=== PATIENT | male | born 1950 | race African-American/Black ===

== ENCOUNTER → 2020-10-20 08:56 | Outpatient (BNVA) | payer OTHER, SELFPAY | PROVIDERS: PCP Internal Medicine; Visit Provider Urology ==

== ENCOUNTER → 2021-05-28 09:40 | Outpatient (BNVA) | payer OTHER, SELFPAY | PROVIDERS: PCP Internal Medicine; Visit Provider Urology | DX: C61 Malignant neoplasm of prostate (principal); N39.498 Other specified urinary incontinence | CPT/HCPCS: 52000; 99212 ==

== ENCOUNTER 2021-11-05 10:31 | Outpatient (REF) | payer OTHER, SELFPAY ==
[2021-11-05 12:26] LABS: PSA,Total (Free>4and<10) < 0.05 ng/mL (0.00-4.00)
== END 2021-11-05 10:32 | disposition home or self-care (01) ==
LOC: HO.LAB 10:31
PROVIDERS: PCP Internal Medicine; Visit Provider Urology
DX: Z12.5 Encounter for screening for malignant neoplasm of prostate (principal); C61 Malignant neoplasm of prostate
CPT/HCPCS: 36415; 84153

== ENCOUNTER → 2021-11-09 14:30 | Outpatient (BNVA) | payer OTHER, SELFPAY | PROVIDERS: PCP Internal Medicine; Visit Provider Urology | DX: Z13.89 Encounter for screening for other disorder (principal) | CPT/HCPCS: 99212 ==

== ENCOUNTER → 2021-12-21 15:04 | Outpatient (BNVA) | payer OTHER, SELFPAY | PROVIDERS: PCP Internal Medicine; Visit Provider Urology | DX: N39.3 Stress incontinence (female) (male) (principal); C61 Malignant neoplasm of prostate | CPT/HCPCS: 51798; 99212 ==

== ENCOUNTER → 2022-02-15 10:50 | Outpatient (BNVA) | payer OTHER, SELFPAY | PROVIDERS: PCP Internal Medicine; Visit Provider Urology | DX: N39.3 Stress incontinence (female) (male) (principal) | CPT/HCPCS: 99212 ==

== ENCOUNTER 2022-02-28 05:39 | Day surgery (SDC) | payer OTHER, SELFPAY ==
[2022-02-21 15:10] VITALS: BMI 23.8
--- NOTE | 2022-02-25 10:23 | HO.ANESPROP2 ---
Documented by User: Erma Packer NP 02/25/22 10:24 HPI - Anesthesia Eval Consult details Narrative: 71yo M for Pubo Sling - Male PMFSH Active Problems Active Problems: All Active Problems (Updated 02/21/22 @ 15:03 by Mona Boateng RN) Prostate cancer (Acute) Male urinary stress incontinence (Acute) UTI (urinary tract infection) with pyuria (Acute) Incomplete emptying of bladder (Acute) Past Medical History Medical History Bladder outlet obstruction Depression Elevated cholesterol Emphysema of lung Incomplete emptying of bladder Peripheral neuropathy Prostate cancer UTI (urinary tract infection) with pyuria Family History Family History Father Prostate cancer Brother Prostate cancer Surgical History Surgical History H/O colonoscopy Hx of appendectomy Hx of radical prostatectomy Hx of right inguinal hernia repair Social History Social History (Updated 02/21/22 @ 15:03 by Mona Boateng RN) Household Members: Family Housing: House Do you presently have visiting nurse or other home services: No Patient Tobacco Use Status: Former Tobacco user Tobacco use type: Cigarette Use of substances other than those prescribed or required for medical reasons: No Have you been hit, kicked, punched, or otherwise hurt by someone within the past year? If so, by whom?: No Do you feel safe in your current relationship?: Yes Are you DNR?: No Advance Directives: No Advance Directives Information Provided: Yes Do you have thoughts of harming others: None Do you have a plan to hurt others: No Plan Recently lost weight without trying: No Nutrition Risks: No Nutritional Risk Meds Allergies Allergy/AdvReac Type Severity Reaction Status Date / Time No Known Allergies Allergy Verified 02/14/22 15:21 Home Medications Medication Instructions Recorded Confirmed Last Taken Type aspirin 81 mg chewable tablet 81 mg PO Q48H 02/28/22 02/28/22 Unknown History cetirizine 10 mg tablet 10 mg PO DAILY PRN Allergy Symptoms 02/28/22 02/28/22 Unknown History melatonin 3 mg tablet 3 mg PO BEDTIME PRN Allergy 02/28/22 02/28/22 Unknown History Symptoms meloxicam 15 mg tablet 15 mg PO DAILY PRN Pain 02/28/22 02/28/22 Unknown History Exam Exam Date and Time: February 25, 2022 1023 Height,Weight and Vital Signs: Height 5 ft 2 in Weight 58.967 kg Assessment and Plan Assessment Anesthesia Assessment: Chart Reviewed Documented by User: Laurent Unger MD 02/28/22 18:13 HPI - Anesthesia Eval Consult details Narrative: 71yo M for Pubo Sling - Male post nasal drip PMFSH Past Medical History Medical History Bladder outlet obstruction Depression Elevated cholesterol Emphysema of lung Incomplete emptying of bladder Peripheral neuropathy Prostate cancer UTI (urinary tract infection) with pyuria Family History Family History Father Prostate cancer Brother Prostate cancer Family history of problems with anesthesia: No Surgical History Surgical History H/O colonoscopy Hx of appendectomy Hx of radical prostatectomy Hx of right inguinal hernia repair History of Problems with Anesthesia: No Social History Social History (Updated 02/21/22 @ 15:03 by Mona Boateng RN) Household Members: Family Housing: House Do you presently have visiting nurse or other home services: No Patient Tobacco Use Status: Former Tobacco user Tobacco use type: Cigarette Use of substances other than those prescribed or required for medical reasons: No Have you been hit, kicked, punched, or otherwise hurt by someone within the past year? If so, by whom?: No Do you feel safe in your current relationship?: Yes Are you DNR?: No Advance Directives: No Advance Directives Information Provided: Yes Do you have thoughts of harming others: None Do you have a plan to hurt others: No Plan Recently lost weight without trying: No Nutrition Risks: No Nutritional Risk Meds Allergies Allergy/AdvReac Type Severity Reaction Status Date / Time No Known Allergies Allergy Verified 02/14/22 15:21 Home Medications Medication Instructions Recorded Confirmed Last Taken Type aspirin 81 mg chewable tablet 81 mg PO Q48H 02/28/22 02/28/22 Unknown History cetirizine 10 mg tablet 10 mg PO DAILY PRN Allergy Symptoms 02/28/22 02/28/22 Unknown History melatonin 3 mg tablet 3 mg PO BEDTIME PRN Allergy 02/28/22 02/28/22 Unknown History Symptoms meloxicam 15 mg tablet 15 mg PO DAILY PRN Pain 02/28/22 02/28/22 Unknown History Exam Airway Mallampati Class: III TM Dist: >3cm Neck ROM: Full Loose/Missing/Broken Teeth: Yes (Extremely poor dentition ) Heart: S1, S2 Lungs: b/l breath sounds Assessment and Plan Assessment Anesthesia Assessment: Anesthesia Plan Discussed Final Anesthetic Review Family History of Problems with Anesthesia: No History of Problems with Anesthesia: No NPO: Yes ASA Class: III Final Preanesthetic Review: Meds/Allgs Chart Reviewed, Consent Obtained/Reviewed and Anes Risks/Benef Reviewed Patient Risk: Intermediate Procedure Risk: Intermediate Anesthetic Plan Anesthetic Plan: GA Disposition: Standard PACU
[2022-02-28] VITALS (15 sets, daily range): BP systolic 122–164; BP diastolic 71–92; PULSE 53–96; RESP 14–18; TEMP 36.2–37.2; O2SAT 95–100; BMI 23.8
--- NOTE | 2022-02-28 08:32 | PC.NURSE ---
0800 deceision to reschedule surgery due to medications not being taken and high cardiac risk
--- NOTE | 2022-02-28 09:18 | MHC.SHP ---
Pre-Procedural Eval Section A Date of Service: 02/28/22 The patient is an INPATIENT: No Changes since office visit: No Cold of Flu in the past 2 weeks, No New Medical Problems, No Changes in Medication and No Patient answered all questions The History & Physical has been completed within 30 days and I have reviewed it.: Yes Section B Chief Complaint: Stress incontinence (female) (male) Details of Present Illness: mALE STRESS INCONTINANCE FOLLOWING PROSTectomy Relevant Family History (Specify if Yes): No Relevant Social History: None Present Medications: see Short Stay Collaborative assessment Medical History: No relevant PMH History of Previous Operations: Relevant previous surgery/procedure and date(s) Allergies: Allergies Allergy/AdvReac Type Severity Reaction Status Date / Time No Known Allergies Allergy Verified 02/14/22 15:21 Review of Systems Sugical H&P ROS: Negative: Constitution, Cardiovascular, Respiratory, Neurological, Psychiatric, Hem-Onc, Allergic/Immunologic, Gastrointestinal, Genitourinary, Musculoskeletal, Integumentary, Endocrine and Eyes/Ears/Nose/Throat Exam Surgical H&P Exam: Normal: HEENT, Normal: Heart, Normal: Lungs, Normal: Extremities, Normal: Abdomen, Normal: Skin and Normal: Neurological Plan Diagnosis/Plan: Unchanged (cystoscopy, male sling placement) I have reviewed the history and physical and performed a pertinent physical examination on my patient. No changes have occurred unless specified.
[2022-02-28] MEDS: ceFAZolin Sodium/Dextrose,Iso 2 GM/50 ML PIGGYBACK IV (09:45)
--- NOTE | 2022-02-28 12:00 | P.OP_ITS ---
Operative Note Operative Note Date of Service: 02/28/22 Narrative: PreOperative Diagnosis: male stress incontinence Post Operative Diagnosis: male stress incontinence Procedure: Advance male sling with cystoscopy Surgeon: Dr Mandeep Baldwin Anesthesia: general Indications for procedure: Male stress incontinence following radical prostatectomy. 2-4 pads per day. Office cystoscopy shows good tissue apposition. Procedure: After informed consent was verified the patient was brought to the operating room and placed in a supine position. Anesthesia was administered per protocol. The patient was placed in a dorsal lithotomy position. Legs aligned to patient's shoulders bent at 90 degrees with slight spread. He was prepped and draped in a sterile fashion. Safety pause time-out was performed. Antibiotics had been given including 2 g catheterization Kefazolinand gentamicin per protocol. Sixteen [place] Fleming catheter placed on the field in bladder drained. Scrotum and Fleming catheter elevated. 5 cm lobe midline perineal incision was marked. Local anesthetic was infiltrated through the skin. Incision was made and taken down through Colles fascia. A [place] retractor was used to provide adequate exposure. Dissection was performed releasing the bulbar spongiosis muscle from its overlying tissue. This was freed laterally, proximally and distally. At the distal edge the junction between the bulbar muscle and corpus spongiosum was defined. The bubble spongiosis muscle was then divided starting distal and running pro ximally. Careful dissection was performed laterally to release any connecting tissue from the corpus spongiosum. The distal aspect of the central tendon was identified by lifting the proximal bulb anteriorly to provide counter traction. The initial dissection of the central tendon was performed. A 4-0 Vicryl suture was placed on the distal aspect of the central tendon insertion for identificat ion. Urethra was mobilized incising fibrous portion of central tendon for approximately 3 to 4 cm of proximal displacement. Care was taken regarding the proximal midline vessels feeding into the corpus spongiosum. At this point the internal aspect of the obturator canal was palpable. This was defined by the symphysis pubis above in the issue of pubic ramus laterally. The insertion of the adductus longus tendon on to the pubis was palpated and marked on each side with a marking pen. The spot of insertion was 1 fingerbreadth below the insertion of the adductor longus tendon lateral to the ischiopubic ramus. Local anesthetic was infiltrated on each side. An Allis clamp was placed on the edge of the bulbous spongiosis muscle in order to assist with the traction away from the side of trocar passage. On the patient's left side the helical trocar was held a 45 degree angle to the midline with the trocar against the patient's buttock. The index finger of the left hand was placed in the perineal incision. The index finger was placed at the apex of the obturator canal. The issue of pubic ramus was palpable. The finger was placed to protect the corpus from inadvertent trocar injury. The trocar was advanced and 2 pops were felt as the trocar passed through the obturator externus and obturator internus muscle layers. After the 2nd pop the trocar was turned approximately 1/4 turn to bring the needle on to the index finger. As the trocar was brought through the fascia the handle was dropped in a vertical fashion to bring out the needle as high as possible in the apex of the obturator fossa. Once the trocar was delivered the mesh was attached with the blue dots facing out and brought back through the stab incision. A similar procedure was performed on the left side and the mesh brought out through the skin incision. The mesh was attached to the corpus spongiosum via 4 separate 4-0 Vicryl sutures. The proximal edge of the mesh was aligned with the initial central tendon marking suture prior to being secured to the corpus spongiosum. The distal edge of the mesh was likewise attached to the corpus spongiosum. The Fleming catheter was removed. The [place] retractor was removed. Flexible cystoscopy was performed. The sling was tightened until circumferential coaptation was observed. This was evaluated with the water turned both on and off. The mesh was examined through the incision and an indent configuration of the corpus spongiosum was notable. The protective type of aches sheath and outer plastic sheath were removed. The sheath was irrigated with antibiotic solution. The mesh was stabilized by holding the mesh next to the corpus spongiosum on the contralateral side. At this point the sheath was removed. This happened after the sheath was divided below the blue judson located at the end of the sling. Initially this was performed on the left side and subsequently repeated on the right side. The arms of the mesh were tunneled subcutaneously using a tonsil clamp in order to minimize chance of slippage. The overlying bulbocavernosus muscle was closed with running 3-0 Vicryl suture. Irrigation was performed. Hemostasis was adequate. A 2nd intervening layer of tissue was closed using a running 3-0 Vicryl. Skin was closed with a running 4-0 Monocryl. Incisions were cleaned and dried. Glue was placed and a final dressing placed. Prior to closure of the incision a 14 [place] F[place] catheter was placed into the bladder which remain overnight. He tolerated the procedure well was extubated in operating room and transferred in stable condition to the recovery area. Pathology: None Drains: Fleming
[2022-02-28] MEDS: oxyCODONE HCl Immed Release 5 MG TABLET PO (12:33)
[2022-02-28] MEDS: Acetaminophen 325 MG TABLET 650 MG PO (12:34)
[2022-02-28] MEDS: HYDROmorphone HCl 0.5 MG/0.5 ML SYRINGE 0.25 MG IVPUSH ×3 (12:36→23:21)
--- NOTE | 2022-02-28 17:50 | PHA.MEDREC ---
Pharmacy Consult ? Medication Reconciliation Pharmacy has completed the medication reconciliation. Patient had a written list. Only takes Aspirin regular every other day. Mia Frazier, PharmD
[2022-02-28] MEDS: Lactated Ringers 1,000 ML 100 ML IVCONT (18:02)
[2022-02-28] MEDS: 0.9 % Sodium Chloride Flush 3 ML SYRINGE IVFLUSH (18:02)
--- NOTE | 2022-02-28 18:22 | PC.NURSE ---
Pt alert orineted x3. denies pain but c/O discomfort. pt admitted form Or S/P male sling placement to rm 357.Dressing to the scrotal area intact with some [id number] strijke through. Pt has a arnett Cath that was inserted in thge OR for bladder obstruction.#20 to the right wrist area.
[2022-03-01] MEDS: Lactated Ringers 1,000 ML 100 ML IVCONT (03:11)
[2022-03-01 03:19] VITALS: BP 120/68; PULSE 90; RESP 14; TEMP 37.7; O2SAT 95
[2022-03-01] MEDS: HYDROmorphone HCl 0.5 MG/0.5 ML SYRINGE 0.25 MG IVPUSH (05:11)
[2022-03-01 07:49] VITALS: BP 117/73; PULSE 82; RESP 17; TEMP 37.3; O2SAT 93
[2022-03-01] MEDS: 0.9 % Sodium Chloride Flush 3 ML SYRINGE IVFLUSH (08:43)
--- NOTE | 2022-03-01 08:56 | HO.POSTANES ---
Post Anesthesia Evaluation Post Anesthesia Evaluation Vital Signs: Vital Signs Temp Pulse Resp BP Pulse Ox O2 Del Method 03/01/22 07:49 99.2 F 82 17 117/73 93 Room Air 03/01/22 03:19 99.8 F 90 14 120/68 95 Room Air 02/28/22 23:20 98.9 F 85 16 126/82 95 Room Air Anesthesia: Monitored Pain Control: Satisfactory Nausea/Vomiting: None Hydration: Adequate Anesthesia-Related Issues: No Anes. Related Issues
[2022-03-01] MEDS: Acetaminophen 325 MG TABLET 650 MG PO (09:22)
[2022-03-01] MEDS: oxyCODONE HCl Immed Release 5 MG TABLET PO (09:22)
--- NOTE | 2022-03-01 09:48 | PM.DS ---
DS: Providers Provider Date of Service: 03/01/22 Primary care physician: Lindsay West MD DS: Diagnosis Discharge Diagnosis (1) Male urinary stress incontinence: Status: Acute DS: Summary Hospital Course Hospital Course: Underwent male sling placement yesterday Fleming catheter overnight Fleming catheter removed today Follow-up in 4 weeks Status at Discharge Functional status at discharge: independent ambulation Overall status at discharge: patient is back to baseline Time Spent with Patient Time attestation: Total time spent providing and/or coordinating discharge services: Discharge coordination time: Less than 30 minutes Specific discharge activities: Cannot lift heavier than 10 lb for the next 4-6 weeks Quality: Safe Use of Opioids Does Pt have an Active Cancer Diagnosis on the Problem List?: No Quality: Stroke Does the patient have a stroke diagnosis?: No Physical Exam Vital Signs: Vital Signs: Last Vital Signs Temp 99.2 F 03/01/22 07:49 Pulse 82 03/01/22 07:49 Resp 17 03/01/22 07:49 BP 117/73 03/01/22 07:49 Pulse Ox 93 03/01/22 07:49 O2 Del Method 03/01/22 07:49 O2 Flow Rate 2 02/28/22 13:40 BMI result Body Mass Index 23.8 Const: General: cooperative, healthy appearing, comfortable and no acute distress Orientation/consciousness: patient oriented x3 HEENT: Face and sinus: Yes normal facial exam Mouth: moist mucous membranes Neck: Neck: Yes normal visual inspection, Yes full ROM and Yes trachea midline Chest: Chest palpation & inspection: normal inspection of the chest Resp: Effort & Inspection: normal respiratory effort, able to speak in complete sentences and no respiratory distress GI: Inspection: Yes normal to inspection Back/Spine/Pelvis: Cervical Spine: normal cervical lordosis Thoracic/Lumbar Spine: thoracic and lumbar spine normal to inspection Skin: General skin exam: no rashes or lesions noted Neuro: General: patient oriented x3, tone normal and moves all extremities Extrem: General: Yes normal to inspection and Yes capillary refill normal Discharge Plan Discharge Patient Disposition: Home, Self-Care Referrals: Mandeep Baldwin MD [Physician] - 4 Weeks Lindsay West MD [Primary Care Provider] - None Discharge Medications: New sulfamethoxazole-trimethoprim [Bactrim] 400-80 mg tablet 1 tab PO DAILY Qty: 10 0RF tramadol 50 mg tablet 50 mg PO Q6H PRN (Reason: pain (scale score 1-3)) Qty: 8 0RF Continued cetirizine 10 mg Tablet 10 mg PO DAILY PRN (Reason: Allergy Symptoms) meloxicam 15 mg Tablet 15 mg PO DAILY PRN (Reason: Pain) melatonin 3 mg Tablet 3 mg PO BEDTIME PRN (Reason: Allergy Symptoms) aspirin 81 mg Tablet,Chewable 81 mg PO Q48H Discharge Orders: Discharge Order (Routine); Ordered 03/01/22 Ordered By: Mandeep Baldwin
--- NOTE | 2022-03-01 15:39 | MHC.CM.PN ---
EMR REVIEWED, CM MET W/PT WHO IS A&O, REPORTS HE LIVES W/DTR AND GDTR, PT IS INDEPENDENT W/ALL CARE, REPORTS HE HAS A CANE HE DOES NOT USE HOWEVER WILL IF HE NEEDS TO, PT DENIES HOME SERVICES OR NEED FOR THEM. PT VERIFIES [facility] X3 AND PCP ART ESPINOZA, PT ALSO REPORTS HIS DTR LEYLA PADILLA [phone], PT NOT SURE IF HE HAS A PAPER COPY AND REPORTED HE WOULD LIKE TO COMPLETE A NEW HCP PRIOR TO D/C HOWEVER PT DISCHARGED HOME PRIOR TO CM BEING ABLE TO COMPLETE W/PT. D/C PLAN: HOME SELF-CARE TODAY W/DTR LEYLA FOR TRANSPORT.
== END 2022-03-01 11:25 | disposition home or self-care (01) ==
LOC: HO.SSS 05:39 → HO.SSSA 14:28 → HO.S3 14:38
PROVIDERS: PCP Internal Medicine; Visit Provider Urology
PROC: (CPT 53440; principal; 2022-02-28 09:00)
DX: N39.3 Stress incontinence (female) (male) (principal); C61 Malignant neoplasm of prostate; Z90.79 Acquired absence of other genital organ(s); Z87.891 Personal history of nicotine dependence; Z79.82 Long term (current) use of aspirin; Z79.899 Other long term (current) drug therapy
CPT/HCPCS: 53440; C1771; J0690; J1100; J1170; J1200; J1580; J2405; J2795; J3010; J3370

== ENCOUNTER → 2022-03-08 10:47 | Outpatient (BNVA) | payer OTHER, SELFPAY | PROVIDERS: PCP Internal Medicine; Visit Provider Urology | DX: N31.9 Neuromuscular dysfunction of bladder, unspecified (principal); N39.3 Stress incontinence (female) (male); C61 Malignant neoplasm of prostate | CPT/HCPCS: 51798 ==

== ENCOUNTER → 2022-06-07 13:44 | Outpatient (BNVA) | payer OTHER, SELFPAY | PROVIDERS: PCP Internal Medicine; Visit Provider Urology | DX: C61 Malignant neoplasm of prostate (principal); N39.3 Stress incontinence (female) (male); R33.9 Retention of urine, unspecified | CPT/HCPCS: 51798; 99212 ==

== ENCOUNTER 2022-12-09 09:26 | Outpatient (REF) | payer OTHER, SELFPAY ==
[2022-12-09 11:47] LABS: Prostate Specific Antigen < 0.10 ng/mL (<0.05-4.0)
== END 2022-12-09 09:27 | disposition home or self-care (01) ==
LOC: HO.LAB 09:26
PROVIDERS: PCP Internal Medicine; Visit Provider Urology
DX: C61 Malignant neoplasm of prostate (principal); Z12.5 Encounter for screening for malignant neoplasm of prostate
CPT/HCPCS: 36415; 84153

== ENCOUNTER → 2022-12-16 11:03 | Outpatient (BNVA) | payer OTHER, SELFPAY | PROVIDERS: PCP Internal Medicine; Visit Provider Urology | DX: N39.3 Stress incontinence (female) (male) (principal); C61 Malignant neoplasm of prostate | CPT/HCPCS: 99212 ==

== ENCOUNTER 2024-01-02 08:43 | Outpatient (REF) | payer OTHER, SELFPAY ==
[2024-01-02 09:58] LABS: Prostate Specific Antigen < 0.10 ng/mL (<0.05-4.0)
== END 2024-01-02 08:44 | disposition home or self-care (01) ==
LOC: HO.LAB 08:43
PROVIDERS: PCP Internal Medicine; Visit Provider Urology
DX: C61 Malignant neoplasm of prostate (principal); Z12.5 Encounter for screening for malignant neoplasm of prostate
CPT/HCPCS: 36415; 84153

== ENCOUNTER 2024-01-10 11:14 | Outpatient (AMB) | payer OTHER, SELFPAY ==
--- NOTE | 2024-01-10 11:30 | MHC.OFFVIS ---
Intake Visit Reasons: 1Y PSA/PVR/UA Check(set) Intake Note: Patient presents to the office today for a 1 year PSA/PVR/UA check. Urology Med: None Antibiotic Allergy: None Blood Thinner: Aspirin PVR: 0ml Allergies No Known Allergies Allergy (Verified 01/10/24 11:31) HPI Comments Details: Guero is a very pleasant male. He is a patient of Dr West. He is seen in the office today for the following urologic conditions. - prostate cancer - postprocedure stress incontinence PSA - 12/06 <0.1, 12/07 <0.1 Minimal incontinence Using no pads Very happy with continued good outcome from sling procedure Twelve month follow-up Male stress incontinence Persistent since prostate procedure Using 1 to 4 pads per day Cystoscopy with distal sphincter partial closure on command 03/07 advanced male sling Prostate cancer: Had prior prostatectomy for prostate cancer - prostatectomy 2015 - 11/05 <0.1 PFSH Medical History Elevated cholesterol Depression Emphysema of lung Prostate cancer Peripheral neuropathy Incomplete emptying of bladder Bladder outlet obstruction UTI (urinary tract infection) with pyuria Surgical History Hx of appendectomy Hx of right inguinal hernia repair H/O colonoscopy Hx of radical prostatectomy Family History Father Prostate cancer Brother Prostate cancer Social History Household Members: Family Housing: House Do you presently have visiting nurse or other home services: No Patient Tobacco Use Status: Former Tobacco user Tobacco use type: Cigarette service: Yes Current occupational status: retired Review of Systems Const Denies chills and Denies fever(s) Card Reports no additional complaints and Denies syncope Resp Denies cough GI Denies abdominal pain and Denies heartburn Reports as per HPI and Denies change in libido Neuro Denies syncope Psych Denies change in libido Endo Denies change in libido Physical Exam Const General: cooperative, healthy appearing, comfortable and no acute distress Orientation/consciousness: patient oriented x3 HEENT Face and sinus: Yes normal facial exam Mouth: moist mucous membranes Neck Neck: Yes normal visual inspection, Yes full ROM and Yes trachea midline Chest Chest palpation & inspection: normal inspection of the chest Resp Effort & Inspection: normal respiratory effort, able to speak in complete sentences and no respiratory distress GI Inspection: Yes normal to inspection Back/Spine/Pelvis Cervical Spine: normal cervical lordosis Thoracic/Lumbar Spine: thoracic and lumbar spine normal to inspection Skin General skin exam: no rashes or lesions noted Neuro General: patient oriented x3, gait normal, tone normal and moves all extremities Extrem General: Yes normal to inspection and Yes capillary refill normal Office Procedures Post Void Residual Post Residual Void Post Void Residual (PVR): 0 [id number] Void Residual by ultrasound Results AMB Urinalysis, Automated UA Leukoctes 0 Wu/uL Last Edit by Kim Mims CMA on 01/10/24 11:39 UA Nitrite Negative Last Edit by Kim Mims CMA on 01/10/24 11:39 UA Urobilinogen 0.2 mg/dL Last Edit by Kim Mims CMA on 01/10/24 11:39 UA Protein 15 mg/dL Last Edit by Kim Mims CMA on 01/10/24 11:39 UA pH 6.0 Last Edit by Kim Mims CMA on 01/10/24 11:39 UA Blood 0 Chito/uL Last Edit by Kim iMms CMA on 01/10/24 11:39 UA Specific Warren 1.015 Last Edit by Kim Mims CMA on 01/10/24 11:39 UA Ketone Negative Last Edit by Kim Mims CMA on 01/10/24 11:39 UA Bilirubin 0 mg/dL Last Edit by Kim Mims CMA on 01/10/24 11:39 UA Glucose 0 mg/dL Last Edit by Kim Mims CMA on 01/10/24 11:39 Results Reviewed Results Reviewed: Laboratory Last Values Urine pH (Auto) 6.0 01/10/24 11:34 Specific Warren (Auto) 1.015 01/10/24 11:34 Urine Protein (Auto) 15 mg/dL 01/10/24 11:34 Glucose (UA)(Auto) 0 mg/dL 01/10/24 11:34 Urine Ketones (Auto) Negative 01/10/24 11:34 Urine Blood (Auto) 0 Chito/uL 01/10/24 11:34 Urine Nitrite (Auto) Negative 01/10/24 11:34 Urine Bilirubin (Auto) 0 mg/dL 01/10/24 11:34 Urine Urobilinogen (Auto) 0.2 mg/dL 01/10/24 11:34 Leukocyte Esterase (Auto) 0 Wu/uL 01/10/24 11:34 Assessment & Plan Assessment & Plan (1) Prostate cancer: Code(s): C61 - Malignant neoplasm of prostate Category: Medical (2) Male urinary stress incontinence: Comment: 03/07 advanced male sling Code(s): N39.3 - Stress incontinence (female) (male) Category: Medical Plan 1 year follow-up Orders: Orders AMB Post Void Residual by ultrasound Today R33.9 - Retention of urine, unspecified Prostate Specific Antigen 364 Days C61 - Malignant neoplasm of prostate AMB Urinalysis Automated Today Z13.9 - Encounter for screening, unspecified Patient Instructions: Imaging studies, laboratory and physical exam results were discussed and reviewed in detail. No major barriers to patient understanding were identified. An opportunity to ask questions regarding the treatment plan was provided. All questions were answered. The patient expressed understanding and agreement with the above treatment plan. The patient is aware they should contact our office by phone for worsening of their current condition or the appearance of new urologic symptoms. Compliance is encouraged with any medications and followup testing that is ordered. It is a privilege to participate in the urologic care of your patient. If you have any questions or concerns regarding treatment for the above conditions, or other urologic issues, please do not hesitate to contact me. The office telephone contact is [phone]. This note is constructed using voice recognition software. While every effort has been made to ensure accuracy sewing machines salesperson errors may have been included. Yours sincerely, Dr Mandeep Baldwin MD, [facility] - Urology Providers of Expert, Compassionate Care for the Genitourinary System Coding Level of Care Code Est Pt Level 4 (12729) Diagnoses Prostate cancer C61 Male urinary stress incontinence N39.3 CPT Codes Post Residual Void - PVR CPT Code: 80888-Oxpt Void Residual by ultrasound ([id number])
== END 2024-01-10 11:52 | disposition home or self-care (01) ==
PROVIDERS: PCP Internal Medicine; Visit Provider Urology
DX: C61 Malignant neoplasm of prostate (principal); N39.3 Stress incontinence (female) (male); Z13.9 Encounter for screening, unspecified
CPT/HCPCS: 99214

== ENCOUNTER → 2024-01-10 11:14 | Outpatient (BNVA) | payer OTHER, SELFPAY | PROVIDERS: PCP Internal Medicine; Visit Provider Urology | DX: C61 Malignant neoplasm of prostate (principal); R33.9 Retention of urine, unspecified; N39.3 Stress incontinence (female) (male) | CPT/HCPCS: 51798; 81003; 99212 ==

== ENCOUNTER 2025-01-21 08:51 | Outpatient (REF) | payer OTHER, SELFPAY ==
--- OUTSIDE RECORDS SUMMARY | 2024-05-09 09:30 | XMS_ITS ---
Author Name [facility] Organization [facility] [place] Address [address] [place] [id number] Care Team Providers Care Web Feeder Name Role Phone REBECA HELM Primary Care Provider Maribell lane Insurance Providers: All historical and current Section Date Range: From patient's date of to the date document was created. This section includes the names of all active insurance providers for the patient. Insurance Provider Type of Coverage Plan Name Start of Policy Coverage End of Policy Coverage Group Number Member ID Insurance Provider's Telephone Number Policy Altamirano's Name Patient's Relationship to Policy Altamirano MEDICAID [facility] Sep 11, 2012 MEDICAI D [id number] ELIGIO PADILLA PATIENT MEDICARE (WNR) MEDICARE (M) PART A Dec 15, 2006 PART A [id number] ELIGIO PADILLA PATIENT MEDICARE (WNR) MEDICARE (M) PART B Dec 15, 2006 PART B [id number] ELIGIO PADILLA PATIENT MEDICARE (WNR) MEDICARE (M) PART A Dec 15, 2006 PART A [id number] ELIGIO PADILLA PATIENT MEDICARE (WNR) MEDICARE (M) PART B Dec 15, 2006 PART B [id number] ELIGIO PADILLA PATIENT TITLE 19 MEDICAID TITLE 19 Jul 17, 2009 [id number] ELIGIO PADILLA PATIENT Selected Encounter This section includes the information on record at [place] for the Encounter. Date/Time Encounter Type Encounter Description Reason Provider Source May 09, 2024 01:30 PM INTRM OPH EXAM EST PATIENT OPTOMETRY ICD-10-CM H40.053 Ocular hypertension, bilateral LORENZO KINCAID IHE Encounter Template Text not used by VA Assessments - Encounter Diagnoses This section includes the primary and secondary diagnoses documented for the Encounter. Date/Time Primary/Secondary Diagnosis Diagnosis Name Provider Source May 10, 2024 12:02 PM PRIMARY Ocular hypertension, bilateral SANJIV,LORENZO B [facility] May 10, 2024 12:02 PM SECONDARY Age-related nuclear cataract, bilateral SANJIV,LORENZO B [facility] Advance Directives: All historical and current Section Date Range: From patient's date of to the date document was created. This section includes ALL of a patient's completed or amended VA Advance and Rescinded Directives. The entries below indicate that a directive exists for the patient, but an actual copy is not included with this document. The data comes from all [place] facilities. Date Advance Directives Provider Source Jun 02, 2009 ADVANCE DIRECTIVE MARBIN RENTERIA Encounter Notes: All associated encounter notes This section contains the clinical notes associated to the Encounter. Date/Time Encounter Note(s) Provider Source May 09, 2024 01:02 PM OPTOMETRY NOTE: LOCAL TITLE: OPTOMETRY NOTE STANDARD TITLE: OPTOMETRY NOTE DATE OF NOTE: MAY 09, 2024@13:02 ENTRY DATE: MAY 09, 2024@13:02:22 AUTHOR: LORENZO KINCAID EXP COSIGNER: URGENCY: STATUS: COMPLETED 73 DECLINED TO ANSWER MALE DECLINED TO ANSWER Last eye exam: 09/06/23 Reason for Visit/CC: patient here for a follow up visit. No changes in vision OHx: borderline ocular hypertension OU cataracts OU refractive error OU (-) Pain: (-) KEATING: (-) Diplopia: (-) Flashes: (-) Floaters: (-) Amaurosis Fugax/Tia's: (-) Eye Injury: (-) Eye Surgery: (-) TBI (-) FOHx: MHx: Code Description R69. Folic acid deficiency ([facility] [id number]) E56.9 Vitamin D deficiency ([facility] [id number]) R69. Co-Management (ICD-10-CM R69.) D07.5 Prostate cancer ([facility] [id number]) Z90.89 History of radical prostatectomy ([facility] [id number]) J43.9 Emphysema of lung ([facility] [id number]) F33.9 Depression ([facility] [id number]) 790.93 Raised prostate specific antigen ([facility] [id number]) 799.9 Appendectomy (ICD-9-CM 799.9) 553.9 Hernia (ICD-9-CM 553.9) 733.90 Osteopenia (ICD-9-CM 733.90) 799.9 Chest Findings (ICD-9-CM 799.9) 799.9 EKG (ICD-9-CM 799.9) V76.51 Screening for Malignant Neoplasms of colon (ICD-9-CM V76.51) E78.5 Hyperlipidemia ([facility] [id number]) 564.00 CONSTIPATION, unspecified (ICD-9-CM 564.00) 356.2 Peripheral sensory neuropathy (ICD-9-CM 356.2) 303.93 OTHER ALC DEP REMISS (ICD-9-CM 303.93) Other: SYSTEMIC MEDICATIONS/OCULAR MEDICATIONS: Active and Recently Outpatient Medications (excluding Supplies): Active Outpatient Medications Status 1) CETIRIZINE HCL 10MG TAB TAKE ONE TABLET BY MOUTH ONCE ACTIVE DAILY NEEDED FOR ALLERGIES 2) DICLOFENAC NA 1% TOP GEL APPLY 4 GRAMS TOPICALLY AT ACTIVE BEDTIME NEEDED FOR JOINT PAIN FOR OSTEOARTHRITIS - USE DOSING CARD PROVIDED IN BOX 3) MELOXICAM 15MG TAB TAKE ONE TABLET BY MOUTH ONCE ACTIVE DAILY FOR JOINT INFLAMMATION 4) SILDENAFIL CITRATE 100MG TAB TAKE ONE TABLET BY MOUTH ACTIVE ONCE DAILY NEEDED FOR ERECTILE DYSFUNCTION TAKE 1 HOUR PRIOR TO SEXUAL ACTIVITY START WITH 1/2 TABLET, INITIALLY Active Non-VA Medications Status 1) Non-VA ASPIRIN 81MG EC TAB 81MG BY MOUTH EVERY DAY ACTIVE 5 Total Medications ALLERGIES: Patient has answered NKA LAST BP: 118/70 (01/17/2024 10:29) PERTINENT LABS: HEMOGLOBIN A1C; BLOOD Murtaza. Date: 11/03/23 09:00 10/31/22 08:55 Test Name Result Units Range HEMOGLOBIN A1C 5.8 H 6.0 H % 4.0 - 5.6 Current Rx: OD: +1.25 -0.75 x 100 OS: +1.50 -1.50 x 105 Add: +2.50 DVA ( )sc ( x )cc OD 20/20-1 OS 20/25+2 Pupils: PERRL (-)APD EOM: Full all meridia OU, (-) pain/diplopia Confrontation Visual [place]: Full all meridia OU SLE: Lids/Lashes: clear OU Conjunctiva: white and quiet OU Corneas: clear OU Iris: flat and clear OU (-)TID OU Anterior Chamber: deep and quiet OU Angles: open OU Lens: 1-2+ NS OU (-)PXF OU TAP @ 1:17pm OD 23 mm Hg OS 20 mm Hg Pachymetry 08/2023 (OCT) OD 520 OS 524 undilated: Vitreous: Syneresis OU C/D (Size and Rim Description) OD 0.40 pink & healthy OS 0.40 pink & healthy (-)notching/hemorrhage OU Macula OD flat and clear OS flat and clear A/V: normal caliber OU Posterior Pole: clear OU Assessment/Plan: 1. borderline ocular hypertension OU - IOP today is stable OU with thinner than average pachymetry. VF today showed no glaucomatous defects OU. RNFL OCT shows significant thinning, however discs are small so RNFL may be flagged artificially low. Monitor 1 year and repeat VF/RNFL OCT 2. Nuclear sclerosis cataracts OU, not visually significant. Monitor 3. hyperopia OU, regular astigmatism OU, presbyopia OU - happy with current PALs RTC 1 year or earlier PRN Patient Education: Glaucoma: Patient was educated regarding glaucoma/glaucoma suspect as well as the natural history of this diagnosis including prognosis. Stress importance of compliance and persistency with glaucoma medication when prescribed, timely follow up as well as the role of ancillary testing. Exclusion criteria for ancillary testing include significantly reduced acuity, mental status changes affecting the patient's ability to attend to the test or other physical limitations that would prohibit the patient's ability to participate in testing. patient offered and declined printed medication list Medication Reconciliation: Outpatient: Has the patient been taking medications as documented in the EMLR? YES: The patient has been taking medications as documented in the EMLR. Essential Medication List for Review used to complete this medication reconciliation. INCLUDED IN THIS LIST: Alphabetical list of active outpatient prescriptions dispensed from this [facility] (local) and dispensed from another [place] or [facility] facility (remote) as well as inpatient orders (local, pending and active), local clinic medications, locally documented non-VA medications, and local prescriptions that have or been discontinued in the past 90 days. - All changes in medications, including all non-VA/Herbal/OTC medications were entered into [facility]S. - If there were any medications the patient should no longer take, they were discontinued. - The patient/caregiver was instructed to update this list, discard old lists, and take this list to the next appointment, whether with a VA or non-VA provider. JLV Link Data on this list may not be complete. Please check [employer]. Allergies/ADRs (Tool #5) FACILITY ALLERGY/ADR -------- No Remote Allergy/ADR Data available for this patient [place] [facility] [place] [facility] No Known Allergies Med [facility] (Tool #1) INCLUDED IN THIS LIST: Alphabetical list of active outpatient prescriptions dispensed from this [facility] (local) and dispensed from another [place] or [facility] facility (remote) as well as inpatient orders (local pending and active), local clinic medications, locally documented non-VA medications, and local prescriptions that have or been discontinued in the past 90 days. Non-VA Meds Last Documented On: Jun 27, 2018 NOTE The display of VA prescriptions dispensed from another [place] or [facility] facility (remote) is limited to active outpatient prescription entries matched to National Drug File at the originating site and may not include some items such as investigational drugs, compounds, etc. NOT INCLUDED IN THIS LIST: Medications self-entered by the patient into personal health records (i.e. [employer]) are NOT included in this list. Non-VA medications documented outside this [place], remote inpatient orders (regardless of status) and remote clinic medications are NOT included in this list. The patient and provider must always discuss medications the patient is taking, regardless of where the medication was dispensed or obtained. Non-VA ASPIRIN 81MG EC TAB TAKE ONE TABLET BY MOUTH EVERY DAY Patient wants to buy from Non-VA pharmacy. Medication prescribed by Non-VA provider. OUTPT CETIRIZINE HCL 10MG TAB (Status = Active) TAKE ONE TABLET BY MOUTH ONCE DAILY NEEDED FOR ALLERGIES Rx# [id number] Last Released: 04/19/24 Qty/Days Supply: Rx Expiration Date: 09/25/24 Refills Remainin Indication: FOR ALLERGIES OUTPT DICLOFENAC NA 1% TOP GEL (Status = Active) APPLY 4 GRAMS TOPICALLY AT BEDTIME NEEDED FOR JOINT PAIN FOR OSTEOARTHRITIS - USE DOSING CARD PROVIDED IN BOX Rx# [id number] Last Released: 11/07/23 Qty/Days Supply: Rx Expiration Date: 11/06/24 Refills Remainin Indication: FOR JOINT PAIN OUTPT MELOXICAM 15MG TAB (Status = Active) TAKE ONE TABLET BY MOUTH ONCE DAILY FOR JOINT INFLAMMATION Rx# [id number] Last Released: 01/22/24 Qty/Days Supply: 04/25 Rx Expiration Date: 01/17/25 Refills Remainin Indication: FOR JOINT INFLAMMATION OUTPT SILDENAFIL CITRATE 100MG TAB (Status = Active) TAKE ONE TABLET BY MOUTH ONCE DAILY NEEDED FOR ERECTILE DYSFUNCTION TAKE 1 HOUR PRIOR TO SEXUAL ACTIVITY START WITH 1/2 TABLET, INITIALLY Rx# [id number] Last Released: 11/08/23 Qty/Days Supply: Rx Expiration Date: 11/06/24 Refills Remainin Indication: FOR ERECTILE DYSFUNCTION SUPPLIES /alfie/ LORENZO KINCAID OD Virtual Assistant Signed: 05/10/2024 12:02 LORENZO KINCAID [place] [facility]
[2025-01-21 10:48] LABS: Prostate Specific Antigen < 0.10 ng/mL (<0.05-4.0)
== END 2025-01-21 08:52 | disposition home or self-care (01) ==
LOC: HO.LAB 08:51
PROVIDERS: Visit Provider Urology
DX: C61 Malignant neoplasm of prostate (principal)
CPT/HCPCS: 36415; 84153

== ENCOUNTER 2025-01-28 15:04 | Outpatient (AMB) | payer OTHER, SELFPAY ==
--- NOTE | 2025-01-28 15:24 | MHC.OFFVIS ---
Intake Visit Reasons: 1yr/PSA Intake Note: Patient presents to the office today for a 1 year PSA/PVR PSA:<0.10 Urology Med: None Antibiotic Allergy: None Blood Thinner: Aspirin PVR: 19 mls Allergies No Known Allergies Allergy (Verified 01/10/24 11:31) HPI Comments Details: Guero is a very pleasant male. He is a patient of Dr West. He is seen in the office today for the following urologic conditions. - prostate cancer - postprocedure stress incontinence PSA - 12/06 <0.1, 12/07 <0.1, 02/07 <0.1 Yearly follow-up Doing well with control of continence Good PSA Male stress incontinence Persistent since prostate procedure Using 1 to 4 pads per day Cystoscopy with distal sphincter partial closure on command 03/07 advanced male sling Prostate cancer: Had prior prostatectomy for prostate cancer - prostatectomy 2015 - 11/05 <0.1 PFSH Medical History Elevated cholesterol Depression Emphysema of lung Prostate cancer Peripheral neuropathy Incomplete emptying of bladder Bladder outlet obstruction UTI (urinary tract infection) with pyuria Surgical History Hx of appendectomy Hx of right inguinal hernia repair H/O colonoscopy Hx of radical prostatectomy Family History Father Prostate cancer Brother Prostate cancer Social History Household Members: Family Housing: House Do you presently have visiting nurse or other home services: No Patient Tobacco Use Status: Former Tobacco user Tobacco use type: Cigarette service: Yes Current occupational status: retired Review of Systems Const Denies chills and Denies fever(s) Card Reports no additional complaints and Denies syncope Resp Denies cough GI Denies abdominal pain and Denies heartburn Reports as per HPI and Denies change in libido Neuro Denies syncope Psych Denies change in libido Endo Denies change in libido Physical Exam Const General: cooperative, healthy appearing, comfortable and no acute distress Orientation/consciousness: patient oriented x3 HEENT Face and sinus: Yes normal facial exam Mouth: moist mucous membranes Neck Neck: Yes normal visual inspection, Yes full ROM and Yes trachea midline Chest Chest palpation & inspection: normal inspection of the chest Resp Effort & Inspection: normal respiratory effort, able to speak in complete sentences and no respiratory distress GI Inspection: Yes normal to inspection Back/Spine/Pelvis Cervical Spine: normal cervical lordosis Thoracic/Lumbar Spine: thoracic and lumbar spine normal to inspection Skin General skin exam: no rashes or lesions noted Neuro General: patient oriented x3, gait normal, tone normal and moves all extremities Extrem General: Yes normal to inspection and Yes capillary refill normal Assessment & Plan Assessment & Plan (1) Prostate cancer: Code(s): C61 - Malignant neoplasm of prostate Category: Medical (2) Male urinary stress incontinence: Comment: 03/07 advanced male sling Code(s): N39.3 - Stress incontinence (female) (male) Category: Medical Plan Twelve month follow-up PSA office Orders: Orders Prostate Specific Antigen 12 Months C61 - Malignant neoplasm of prostate Patient Instructions: This note is constructed using voice recognition software. While every effort has been made to ensure accuracy cnc operator machinist errors may have been included. Imaging studies, laboratory and physical exam results were discussed and reviewed in detail. No major barriers to patient understanding were identified. An opportunity to ask questions regarding the treatment plan was provided. All questions were answered. The patient expressed understanding and agreement with the above treatment plan. The patient is aware they should contact our office by phone for worsening of their current condition or the appearance of new urologic symptoms. Compliance is encouraged with any medications and followup testing that is ordered. It is a privilege to participate in the urologic care of your patient. If you have any questions or concerns regarding treatment for the above conditions, or other urologic issues, please do not hesitate to contact me. The office telephone contact is [phone]. Sincerely, Dr Mandeep Baldwin MD, [facility] - Urology Compassionate Specialist Care for the Genitourinary System Coding Level of Care Code Est Pt Level 4 (14855) Complex EM visit Add On G2211 Diagnoses Prostate cancer C61 Male urinary stress incontinence N39.3
== END 2025-01-28 16:04 | disposition home or self-care (01) ==
PROVIDERS: PCP Internal Medicine; Visit Provider Urology
DX: C61 Malignant neoplasm of prostate (principal); N39.3 Stress incontinence (female) (male); Z13.9 Encounter for screening, unspecified
CPT/HCPCS: 99214; G2211

== ENCOUNTER → 2025-01-28 15:04 | Outpatient (BNVA) | payer MEDICARE, SELFPAY | PROVIDERS: PCP Internal Medicine; Visit Provider Urology | DX: C61 Malignant neoplasm of prostate (principal); N39.3 Stress incontinence (female) (male) | CPT/HCPCS: 51798; 81003; 99212 ==